=== PATIENT | female | born 1945 | race Caucasian/White ===

== ENCOUNTER → 2017-02-25 | Outpatient (CLI) | payer MEDICARE, OTHER ==
--- NOTE | 2017-02-26 08:34 | CT ---
EXAM DESCRIPTION: Sinuses: CT. CLINICAL HISTORY: ETHMOIDAL SINUSITIS COMPARISON: None Available. TECHNIQUE: Spiral, axial 2.5 mm scans through the paranasal sinuses without contrast. Coronal and sagittal 2.0 mm reconstructions. 0.6 mm axial reconstructions. Total Exam DLP: 330.5 mGy-cm. This exam was performed according to our departmental CT dose-optimization program which includes automated exposure control, adjustment of the mA and/or kV according to patient size and/or use of iterative reconstruction technique; to reduce radiation dose to as low as reasonably achievable (ALARA). FINDINGS: Minimal mucoperiosteal thickening in the anterior ethmoid air cells. Posterior ethmoid air cells and frontal sinuses, maxillary antra and sphenoid sinuses are patent. Aurelia bullosa in the left middle turbinate. Ostiomeatal units are patent. Bilateral single nasal ostia are patent. No air-fluid levels in the sinuses. Decreased number of air cells in the left mastoid sinus group. Internal auditory structures are grossly normal. Debris in the bilateral fossae of Rosenmuller. No effacement or mass effect. IMPRESSION: 1. Minimal chronic sinusitis anterior ethmoid air cells bilaterally. Ostiomeatal units are patent. 2. Aurelia bullosa in the left middle turbinate. 3. Debris in the bilateral fossae of Rosenmuller. No effacement or mass effect. Electronically signed by: Geoff Spence MD 02/26/2017 8:33 AM CDT
== END | disposition home or self-care (01) ==
LOC: CT 10:16
PROVIDERS: ATTEND Otolaryngology Otolaryngology/Facial Plastic Surgery
DX: J32.2 Chronic ethmoidal sinusitis (principal)

== ENCOUNTER → 2017-10-08 | Outpatient (CLI) | payer MEDICARE, OTHER | LOC: LAB.O 15:55 | PROVIDERS: ATTEND Nurse Practitioner Family | DX: I73.9 Peripheral vascular disease, unspecified (principal) ==

== ENCOUNTER → 2017-10-11 | Outpatient (CLI) | payer MEDICARE, OTHER ==
--- NOTE | 2017-10-13 09:37 | US ---
EXAM DESCRIPTION: Extremity,Lower Eduardo Arteries: Ultrasound. CLINICAL HISTORY: UNSPECIFIED ATHEROSCLEROSIS OF [place] ARTERIES OF EXTREMITIES COMPARISON: None. TECHNIQUE: Doppler evaluation of the bilateral lower extremity arterial flow waveforms and velocities. FINDINGS: Arterial waveforms in the right lower extremity are predominantly triphasic. Biphasic in the right posterior tibial artery and right dorsalis pedis artery.. Arterial waveforms in the left lower extremity are predominately triphasic. Biphasic in the left peroneal artery, posterior tibial artery, and dorsalis pedis artery.. Comments: Minimal intimal wall thickening. IMPRESSION: Bilateral Doppler evaluation of the lower extremity arterial systems showing no evidence of significant atherosclerotic occlusive disease. Electronically signed by: Geoff Spence MD 10/13/2017 9:36 AM CDT
== END ==
LOC: US 13:31
PROVIDERS: ATTEND Nurse Practitioner Family
DX: I70.203 Unspecified atherosclerosis of native arteries of extremities, bilateral legs (principal)

== ENCOUNTER 2019-03-09 05:05 | Day surgery (SDC) | payer MEDICARE, OTHER ==
[2019-03-09] MEDS ORDERED: TROP 1%/CYCLOPEN 1%/PHENYL 2% DROPS ONE (05:48)
[2019-03-09] MEDS ORDERED: PROPARACAINE 0.5% OPHTH SOL 15 ML BTTL ONE ×2 (05:48→09:25)
[2019-03-09] MEDS ORDERED: MOXIFLOXACIN HCL (OPHTH) 1 DROP DROPS ONE (05:48)
[2019-03-09] MEDS ORDERED: MIDAZOLAM INJ 2 MG/2 ML VIAL ONE (06:14)
[2019-03-09] MEDS ORDERED: PROPARACAINE 0.5% OPHTH SOL 15 ML BTTL RIGHT_EYE ONE (07:52)
[2019-03-09] MEDS ORDERED: LIDOCAINE 1% MPF 2 ML VIAL INJ ONE (08:03)
[2019-03-09] MEDS ORDERED: MOXIFLOXACIN HCL (OPHTH) 1 DROP DROPS RIGHT_EYE ONE ×3 (08:03→08:12)
[2019-03-09] MEDS ORDERED: BRIMONIDINE 0.2% OPHTH DROPS RIGHT_EYE ONE ×2 (08:04→08:11)
[2019-03-09] MEDS ORDERED: DEXAMETHASONE 0.1% OPHTH SOL 1 DROP RIGHT_EYE ONE ×2 (08:04→08:11)
[2019-03-09] MEDS ORDERED: TOBRAMYCIN SULF 0.3 % OPHT SOL 1 DROP RIGHT_EYE ONE ×2 (08:04→08:11)
== END 2019-03-09 09:02 | disposition home or self-care (01) ==
LOC: AMB 05:05
PROVIDERS: ATTEND Ophthalmology
DX: H25.11 Age-related nuclear cataract, right eye (principal); I10 Essential (primary) hypertension; Z79.899 Other long term (current) drug therapy
CPT/HCPCS: 00142; 66984; J2250

== ENCOUNTER → 2019-06-17 | Outpatient (CLI) | payer MEDICARE, OTHER ==
--- NOTE | 2019-06-18 11:29 | CT ---
Procedure: CT LUNG SCREENING Exam Date: 06/17/2019 Ordering Provider: ARLET MONSIVAIS Clinical Indication: PERSONAL HISTORY OF TOBACCO USE . Cigarette smoking cessation x1 year. 60 pack years. This patient meets eligibility criteria for low-dose CT lung cancer screening. Comparison: None. Technique: Using a multislice scanner, sequential helical axial imaging was obtained in the thorax, 2.5 mm thickness, 2.5 mm separation, from the level of the thoracic inlet through the lung bases without IV contrast. A low dose protocol was utilized for BMI less than 30: BMI: 14.6. CTDI: 1.76 mGy. 120. kVp. 45 mA. DLP 66.4 mGy-cm. 2D sagittal and coronal reconstructed images, 6.0 mm thickness, were obtained. This exam was performed according to our departmental dose optimization program which includes use of automated exposure control, adjustment of the mA and/or kV according to patient size and/or use of iterative reconstruction technique. Nodule measurements under 10 mm are given as mean value of 3 axes diameters. FINDINGS: Lungs and large airways: Scattered bilateral pulmonary blebs centrilobular distribution slightly more prevalent in the upper lung jones. 2 nodules adjacent to each other in the medial base of the superior segment right upper lobe, subpleural, on axial series 2, images 76-78. Solid nodule is 4.1 mm. And semisolid nodule is 3.9 minimal adjacent pleural thickening. Mm of the solid component. Parenchymal bulla posterior medial right upper lobe. Bilateral air trapping. Scarring and partial volume loss right middle lobe with diffuse thickening of the inferior right major fissure. Bibasilar pleural-parenchymal scarring also seen in the right upper lobe near the apex. No larger nodules or masses. No focal/acute infiltrates. Pleura and space: Bilateral sporadic focal thickening and scarring as noted previously with focal thickening in the right apex. Mediastinum and etelvina: evaluation limited by low dose technique and lack of IV contrast. Normal sized lymph nodes with no dominant soft tissue masses. Heart and great vessels: Atherosclerotic calcifications of the coronary arteries, thoracic aorta, and proximal left subclavian artery. No cardiomegaly. Chest wall, lower neck, axillae: Evaluation also limited by same factors as described above. No soft tissue mass. Calcification lateral left breast. Upper abdomen: Evaluation limited by low-dose technique. Difficult evaluation also due to: Gas and feces and decreased mesentery and fat around the organs. 2 3 mm stones in the upper collecting system of the right kidney. Osseous structures: Evaluation limited by low dose MIP technique. Spondylosis mid and upper thoracic spine. Shoulders and sternoclavicular arthrosis. IMPRESSION: 1. Solid nodule and semisolid nodule less than 5 mm in the medial left lower lobe. Emphysematous changes in the lungs with air trapping. Pleural parenchymal scarring. Old scarring and volume loss right middle lobe. No larger nodules or mass.. [facility] Best Practice Recommendations: please see below for Lung RADS category and FOLLOW-UP.* *Lung RADS category CATEGORY 2S- Nodules with a very low likelihood (less than 1%) of becoming a clinically active cancer due to size or lack of growth. Nodules: Perifissural nodule(s) < 10 mm. (526mm3). Solid or part solid nodule(s) less than 6mm (113.1 mm3), new solid nodule less than 4mm (33.5 mm3). Ground glass nodule(s) less than 30mm (77634.2 mm3) or unchanged or slow growing ground glass nodule 30mm or greater. Cat 3 or 4 nodule unchanged for 3 or more months. FOLLOW-UP: Continue annual screening with a Low Dose Chest CT in 12 months for re-evaluation. lung RADS modifier S 2. Lung RADS Modifier S - Clinically Significant or Potentially Clinically Significant Findings (non lung cancer). Calcification or calcifications lateral left breast. No imaging history of patient enrolled in breast imaging screening program at this facility. Consider bilateral diagnostic digital breast tomosynthesis at this facility if not enrolled in breast imaging screening program at other facility in the past 12 months. Electronically signed by: Geoff Spence MD 06/18/2019 11:28 AM [facility]
== END ==
LOC: CT 13:22
PROVIDERS: ATTEND Emergency Medicine
DX: Z87.891 Personal history of nicotine dependence (principal); R91.1 Solitary pulmonary nodule; J43.9 Emphysema, unspecified

== ENCOUNTER → 2019-08-26 | Outpatient (CLI) | payer MEDICARE, OTHER ==
--- NOTE | 2019-08-27 09:52 | MRI ---
EXAM DESCRIPTION: Lumbar Spine w/o Contrast : Magnetic Resonance Imaging. CLINICAL HISTORY: PROLAPSED LUMBAR INTERVERTEBRAL DISC COMPARISON: MRI scan lumbar spine without contrast July 2009. TECHNIQUE: Multiplanar, multiple standard sequences, non contrast MRI, lumbar spine. FINDINGS: L5-S1: The disc is well visualized on axial T2 series 501, image 3. Partial laminectomy or laminotomy on the left again seen. Posterior disc space loss with anterior bulging. 3 mm grade 1 anterolisthesis. Posterior broad-based disc bulge. Minimal degenerative hypertrophy of the facet joints (Canal elements). AP canal diameter 11 mm. Moderate to severe bilateral foraminal narrowing with encroachment by disc spur complex bilaterally. No significant change since the prior study. L4-L5: Disc desiccation and advanced endplate reactive changes to the right of midline. Anterior disc bulging with spurs. Grade 1 retrolisthesis 5 mm. Chronic midline and left posterior disc herniation 6 mm. Disc is also extruded above the right inferior L4 endplate. Disc herniation has progressed since the prior study with progression of left subarticular recess stenosis. Hypertrophic degenerative changes in the canal elements. AP canal diameter 8 mm. Mild left foraminal narrowing. Moderate to severe right foraminal narrowing with disc spur complex encroachment which has progressed since the prior study. L3-L4: disc space narrowing with disc desiccation. Degenerative hypertrophy of the canal elements. Mild canal narrowing. Bilateral foramina are patent. No interval change. L2-L3: Disc desiccation with minimal disc space loss no bulging. Minimal degenerative hypertrophy of the canal elements. Mild canal narrowing. Bilateral foramina are patent. Stable since the prior study. L1-L2: Disc desiccation and minimal disc space loss. Minimal anterior bulging. Small superior L2 Schmorl's node stable. Minimal posterior bulging. Minimal hypertrophy of the posterior ligaments. Increased to the left of midline since the prior study with hyperintense T2 annular fissure in the bulging segment, and AP canal diameter 11 mm. Bilateral foramina are patent. T12-L1: Disc desiccation with no bulging. Chronic superior L1 endplate Schmorl's node. Minimal degenerative hypertrophy of the left facet joint and flavum ligament. Canal is patent. Mild foraminal narrowing. No change from the prior study. Lumbosacral dextroscoliosis Paravertebral soft tissues paraspinal muscle atrophy.. Distal cord normal signal and caliber. Otherwise normal marrow signal in the remaining vertebral bodies and the posterior elements. Vertebral bodies are not compressed at any level. IMPRESSION: 1. Multiple levels of desiccated discs and spondylosis. Spondylolisthesis at L4-5 and L5 5 S1. Schmorl's nodes at multiple levels. 2. Anterolisthesis, canal narrowing, and moderate to severe bilateral foraminal narrowing at L5-S1 stable from the prior study. 3. Moderate disc herniation at L4-L5 has increased since the prior study. Chronic canal stenosis stable. Left subarticular recess stenosis has progressed since the prior study. Moderate to advanced right-sided spondylosis and moderate to severe right foraminal narrowing has progressed since the prior study. 4. Left posterior bulging of the L1-L2 disc with annular fissure has progressed since the prior study. Moderate canal narrowing but no stenosis. Bilateral foramina are patent. Electronically signed by: Geoff Spence MD 08/27/2019 9:51 AM CDT
== END ==
LOC: MRI 14:00
PROVIDERS: ATTEND Emergency Medicine
DX: M51.26 Other intervertebral disc displacement, lumbar region (principal); M51.36 Other intervertebral disc degeneration, lumbar region; M47.896 Other spondylosis, lumbar region; M43.17 Spondylolisthesis, lumbosacral region; M48.07 Spinal stenosis, lumbosacral region; M51.86 Other intervertebral disc disorders, lumbar region; M51.46 Schmorl's nodes, lumbar region

== ENCOUNTER → 2020-02-19 | Outpatient (CLI) | payer MEDICARE, OTHER ==
--- NOTE | 2020-02-22 15:29 | MRI ---
EXAM DESCRIPTION: Cervical Spine: MRI. CLINICAL HISTORY: 75 years Female RADICULITIS COMPARISON: MRI scan cervical spine without contrast November 2007. TECHNIQUE: Multiplanar, high-field MRI, multiple sequences, non-contrast Cervical spine. FINDINGS: C2-C3: Normal signal in the disc with disc space preserved. Facet joints are unremarkable. Canal and neural foramina are patent. Minimal thickening of the posterior ligaments. C3-C4: Minimal desiccation of the disc and minimal to moderate disc space loss. Posterior broad-based bulge abutting the cord. Thickening of the posterior ligaments. Minimal impression on the cord with borderline central canal stenosis. Bilateral uncinate spurs. Borderline right neural foraminal stenosis with left neural foraminal stenosis. C4-C5: Disc desiccation and minimal disc space loss. Thickening of the posterior ligaments. Minimal posterior disc bulge. Borderline central canal stenosis. Small uncinate spurs. Right neural foramen minimally narrowed and left neural foramen moderately narrowed. Bilateral mild facet arthrosis. C5-C6: ACDF with interbody disc graft. Minimal thickening of the posterior ligaments. Minimal canal narrowing. Bilateral mild neural foraminal narrowing. No hardware complications. Facet joints partially fused. C6-C7: bony fusion essentially complete. Not present on the prior study. Canal is patent. Moderate narrowing left neural foramen and right neuroforamen patent. Facet joints unremarkable. No complications. C7-T1: Disc desiccation and minimal disc space loss. Posterior broad-based disc bulge. Posterior ligament thickening. Borderline mild central canal stenosis. Small uncinate spur on the left and minimal left neural foraminal narrowing. Bilateral facet arthrosis. T1-T2: Disc desiccation with disc space maintained. Minimal hypertrophic facet arthrosis on the left and mild neural foraminal narrowing. Right neuroforamen and canal are patent. Spinal alignment exaggerated lordosis upper spine. No cord compression or cord edema. Atlantoaxial joint minimal arthrosis and hypertrophy. Base of the cerebellar tonsils is slightly above the foramen magnum. Paravertebral soft tissues negative. Vertebral bodies are not compressed at any level. Normal marrow signal in the remaining vertebral bodies and the posterior elements. IMPRESSION: 1. ACDF C5-C6 with interbody fusion device and bony fusion C6-C7. C6-C7 level is new since the prior study. No complications. No canal or neural foraminal stenosis. 2. Posterior broad-based C3-C4 disc bulge and thickening of the posterior ligaments resulting in borderline central canal stenosis. This has progressed since the prior study. 3. Posterior C4-C5 disc bulge and thickening of the ligaments resulting in borderline mild central canal stenosis. This is progressed from the prior study. 4. Posterior broad-based C7-T1 disc bulge and posterior ligament thickening resulting in borderline mild central canal stenosis. This has progressed from the prior study. 5. Please refer to FINDINGS for discussion of results at other disc space levels. Electronically signed by: Geoff Spence MD 02/22/2020 3:28 PM CDT
== END ==
LOC: MRI 14:00
PROVIDERS: ATTEND Emergency Medicine
DX: M50.11 Cervical disc disorder with radiculopathy, high cervical region (principal); M50.121 Cervical disc disorder at C4-C5 level with radiculopathy; M50.93 Cervical disc disorder, unspecified, cervicothoracic region; M51.34 Other intervertebral disc degeneration, thoracic region; Z98.1 Arthrodesis status; M24.28 Disorder of ligament, vertebrae